=== PATIENT | female | born 1995 | race Caucasian/White ===

== ENCOUNTER 2017-07-07 13:07 | Emergency (ER) | payer SELFPAY ==
[2017-07-07 13:24] VITALS: BP 124/60
[2017-07-07] MEDS ORDERED: Diphtheria,Pertussis(Acell),Tetanus Vaccine 0.5 ML Syringe IM ONE (13:29)
[2017-07-07] MEDS ORDERED: Bacitracin Oint 1 GM U/D Packet TOP ONE (13:29)
--- NOTE | 2017-07-07 13:34 | EDM.PDOC ---
ED HPI GENERAL MEDICAL PROBLEM - General Chief Complaint: Laceration Stated Complaint: LEFT MIDDLE FINGER CUT FROM KNIFE WHILE COOKING Time Seen by Provider: 07/07/17 13:29 Source of Information: Reports: Patient History Limitations: Reports: No Limitations - History of Present Illness INITIAL COMMENTS - FREE TEXT/NARRATIVE: HISTORY AND PHYSICAL: []21-year-old female presents as a laceration from 8:00 last night History of Present Illness: []Patient was cutting up chicken for dinner sliced her finger and could not get into the emergency room until now Review of Systems: As per history of present illness and below otherwise all systems reviewed and negative. Past medical history: As per history of present illness and as reviewed below otherwise noncontributory. Surgical history: As per history of present illness and as reviewed below otherwise noncontributory. Social history: No reported history of drug or alcohol abuse. Family history: As per history of present illness and as reviewed below otherwise noncontributory. Physical exam: Alert and oriented female who answers questions appropriately, is not short of breath with speaking and she is nontoxic in appearance. Skin is warm and dry. HEENT: Atraumatic, normocehpalic, pupils reactive, negative for conjunctival pallor or scleral icterus, mucous membranes moist, throat clear, neck supple, nontender, trachea midline. Lungs: Clear to auscultation, breath sounds equal bilaterally, chest non tender. Heart: S1S2, regular, negative for clicks, rubs, or JVD. Abdomen: Soft, nondistended, nontender. Negative for masses or hepatossplenmegaly. Negative for costovertebral tenderness. Pelvis: Stable nontender. Genitourinary: Deferred. Rectal: Deferred Extremities:Fourth finger left hand has 1 1/2 cm laceration, this is fairly well closed and looks clean . No erythema extending from the wound .negative for cords or calf pain. Neurovascular unremarkable. Neuro: Awake, alert, oriented. Cranial nerves II through XII unremarkable. Cerebellum unremarkable. Motor and sensory unremarkable throughout. Exam nonfocal. Diagnostics: [] Therapeutics: []Bacitracin/bandage Impression: []Laceration Plan: []Discharge to home Have explained the length of time frame from the laceration to when she presented to the emergency room and cannot suture this closed Keep this clean Follow-up with your primary care as needed if any signs of infection, red heat or swelling occurs present for reevaluation Definitive disposition and diagnosis as appropriate pending reevaluation and review of above. - Related Data Allergies Allergy/AdvReac Type Severity Reaction Status Date / Time No Known Allergies Allergy Verified 07/07/17 13:21 Home Meds: Home Meds . 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) Other OB/BYN History: Musculoskeletal History: Reports: None Neurological History: Reports: None Psychiatric History: Reports: None Endocrine/Metabolic History: Reports: None Hematologic History: Reports: None Immunologic History: Reports: None Oncologic (Cancer) History: Reports: None Dermatologic History: Reports: None - Past Surgical History Head Surgeries/Procedures: Reports: None HEENT Surgical History: Reports: Tonsillectomy Cardiovascular Surgical History: Reports: None GI Surgical History: Reports: None Female Surgical History: Reports: None Musculoskeletal Surgical History: Reports: None Social & Family History - Family History Family Medical History: Noncontributory - Tobacco Use Smoking Status *Q: Current Every Day Smoker Years of Tobacco use: 10 Packs/Tins Daily: 0.5 - Caffeine Use Caffeine Use: Reports: None - Recreational Drug Use Recreational Drug Use: No ED ROS GENERAL - Review of Systems Review Of Systems: ROS reveals no pertinent complaints other than HPI. ED EXAM, SKIN/RASH Exam: See Below (See dictation) ED SKIN PROCEDURES - Laceration/Wound Repair Left Posterior Finger Lac/Wound length In cm: 1.5 Appearance: Subcutaneous Distal NVT: Neuro & Vascular Intact, No Tendon Injury Closed with: Other (none) Course - Vital Signs Last Recorded V/S: Last Vital Signs Temp 36.7 C 07/07/17 13:21 Pulse 77 07/07/17 13:21 Resp 16 07/07/17 13:21 BP 124/60 07/07/17 13:21 Pulse Ox 99 07/07/17 13:21 - Orders/Labs/Meds Orders: Active Orders 24 hr Category Date Time Status Vaccines to be Administered [RC] PER UNIT ROUTINE Care 07/07/17 13:29 Ordered Bacitracin [Bacitracin Oint 1 GM] Med 07/07/17 13:29 Once 1 dose TOP ONETIME ONE Diphth,Pertuss(Acell),Tet Vac [Adacel] Med 07/07/17 13:29 Once 0.5 ml IM .ONCE ONE Departure - Departure Time of Disposition: 13:33 Disposition: Home, Self-Care 01 Condition: Good Clinical Impression: Laceration - Discharge Information Instructions: Laceration Care, Adult, [id number] Referrals: PCP,None [Primary Care Provider] - Additional Instructions: The following information is given to patients seen in the emergency department who are being discharged to home. This information is to outline your options for follow-up care. We provide all patients seen in our emergency department with a follow-up referral. The need for follow-up, as well as the timing and circumstances, are variable depending upon the specifics of your emergency department visit. If you don't have a primary care physician on staff, we will provide you with a referral. We always advise you to contact your personal physician following an emergency department visit to inform them of the circumstance of the visit and for follow-up with them and/or the need for any referrals to a consulting specialist. The emergency department will also refer you to a specialist when appropriate. This referral assures that you have the opportunity for followup care with a specialist. All of these measure are taken in an effort to provide you with optimal care, which includes your followup. Under all circumstances we always encourage you to contact your private physician who remains a resource for coordinating your care. When calling for followup care, please make the office aware that this follow-up is from your recent emergency room visit. If for any reason you are refused follow-up, please contact the [facility] emergency department at and asked to speak to the emergency department charge nurse. She will be discharged home. You were given a tetanus vaccine while here A signs of infection, redness, swelling, return for reevaluation - My Orders Last 24 Hours: My Active Orders 07/07/17 13:29 Vaccines to be Administered [RC] PER UNIT ROUTINE Bacitracin [Bacitracin Oint 1 GM] 1 dose TOP ONETIME ONE Diphth,Pertuss(Acell),Tet Vac [Adacel] 0.5 ml IM .ONCE ONE - Assessment/Plan Last 24 Hours: My Active Orders 07/07/17 13:29 Vaccines to be Administered [RC] PER UNIT ROUTINE Bacitracin [Bacitracin Oint 1 GM] 1 dose TOP ONETIME ONE Diphth,Pertuss(Acell),Tet Vac [Adacel] 0.5 ml IM .ONCE ONE
== END 2017-07-07 13:54 | disposition home or self-care (01) ==
LOC: MW.ED 13:07
DX: S61.215A Laceration without foreign body of left ring finger without damage to nail, initial encounter (principal); F17.210 Nicotine dependence, cigarettes, uncomplicated; W26.8XXA Contact with other sharp object(s), not elsewhere classified, initial encounter; Z23 Encounter for immunization
CPT/HCPCS: 12001; 90471; 90715; 99282-25; 99283

== ENCOUNTER 2017-09-30 15:24 | Emergency (ER) | payer SELFPAY ==
--- NOTE | 2017-09-30 16:13 | EDM.PDOC ---
ED HPI GENERAL MEDICAL PROBLEM - General Chief Complaint: Respiratory Problem Stated Complaint: /SINUS INFECTION Time Seen by Provider: 09/30/17 15:55 - History of Present Illness INITIAL COMMENTS - FREE TEXT/NARRATIVE: HISTORY AND PHYSICAL: History of present illness: Patient is a 22-year-old female who presents with uky-[id number]-old child ,both of whom have cough nasal congestion and drainage and this patient feels like she has nasal pressure but not sinus pressure. The patient has not had any vomiting or diarrhea and has no abdominal pain and tells me that her last regular period was July 31 and she's concerned she is . Patient did a home test which was positive. She's had no vaginal bleeding no pelvic pain and no other complaints. She has not started any care and has no local provider. This patient did get her influenza shot this year. She has no sore throat ear pain or neck pain and no frontal headache or any headache at all. She has not tried any rqsa-qvh-rkyafrs medications and says she has not had much nasal drainage and just feels like things are plugged up in her nose but not in her sinuses per say. Patient has been eating and drinking normally and has not had any fevers. Review of systems: As per history of present illness and below otherwise all systems reviewed and negative. Past medical history: As per history of present illness and as reviewed below otherwise noncontributory. Surgical history: As per history of present illness and as reviewed below otherwise noncontributory. Social history: No reported history of drug or alcohol abuse. Family history: As per history of present illness and as reviewed below otherwise noncontributory. Physical exam: Gen.: Well-developed well-nourished female who has minimal nasal quality to voice and is not breathless. Vital signs of been reviewed by me. HEENT: Atraumatic, normocephalic, no discrete sinus tenderness on palpation pupils reactive, negative for conjunctival pallor or scleral icterus, mucous membranes moist, throat clear, neck supple, nontender, trachea midline. No cervical adenopathy or nuchal rigidity. Nasal turbinates have minimal bogginess bilaterally there is some clear nasal drainage Lungs: Clear to auscultation, breath sounds equal bilaterally, chest nontender. Heart: S1S2, regular, rate and rhythm no overt murmurs Abdomen: Soft, nondistended, nontender. NABS Pelvis: Deferred Genitourinary: Deferred. Rectal: Deferred. Extremities: Atraumatic, negative for cords or calf pain. Neurovascular unremarkable. Neuro: Awake, alert, oriented. Cranial nerves II through XII unremarkable. Cerebellum unremarkable. Motor and sensory unremarkable throughout. Exam nonfocal. Diagnostics: UCG influenza Therapeutics: [] Impression: Viral URI, newly diagnosed stable Definitive disposition and diagnosis as appropriate pending reevaluation and review of above. - Related Data Allergies Allergy/AdvReac Type Severity Reaction Status Date / Time No Known Allergies Allergy Verified 09/30/17 16:00 Home Meds: Home Meds . 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) Other OB/BYN History: Musculoskeletal History: Reports: None Neurological History: Reports: None Psychiatric History: Reports: None Endocrine/Metabolic History: Reports: None Hematologic History: Reports: None Immunologic History: Reports: None Oncologic (Cancer) History: Reports: None Dermatologic History: Reports: None - Past Surgical History Head Surgeries/Procedures: Reports: None HEENT Surgical History: Reports: Tonsillectomy Cardiovascular Surgical History: Reports: None GI Surgical History: Reports: None Female Surgical History: Reports: None Musculoskeletal Surgical History: Reports: None Social & Family History - Family History Family Medical History: Noncontributory - Tobacco Use Smoking Status *Q: Current Every Day Smoker Years of Tobacco use: 11 Packs/Tins Daily: 1 - Caffeine Use Caffeine Use: Reports: Coffee - Recreational Drug Use Recreational Drug Use: No ED ROS GENERAL - Review of Systems Review Of Systems: ROS reveals no pertinent complaints other than HPI. ED EXAM, GENERAL - Physical Exam Exam: See Below (See dictation) Course - Vital Signs Last Recorded V/S: Last Vital Signs Temp 36.2 C 09/30/17 15:54 Pulse 96 09/30/17 15:54 Resp 20 09/30/17 15:54 BP 115/61 09/30/17 15:54 Pulse Ox 98 09/30/17 15:54 - Orders/Labs/Meds Labs: Laboratory Tests 09/30/17 Range/Units 16:05 Urine HCG, Qual POSITIVE (NEGATIVE) Departure - Departure Time of Disposition: 16:49 Disposition: Home, Self-Care 01 Condition: Good Clinical Impression: Viral URI Qualifiers: Weeks of gestation: 8 weeks Qualified Code(s): Z3A.08 - 8 weeks gestation of - Discharge Information Referrals: PCP,None [Primary Care Provider] - Forms: ED Department Discharge Additional Instructions: The following information is given to patients seen in the emergency department who are being discharged to home. This information is to outline your options for follow-up care. We provide all patients seen in our emergency department with a follow-up referral. The need for follow-up, as well as the timing and circumstances, are variable depending upon the specifics of your emergency department visit. If you don't have a primary care physician on staff, we will provide you with a referral. We always advise you to contact your personal physician following an emergency department visit to inform them of the circumstance of the visit and for follow-up with them and/or the need for any referrals to a consulting specialist. The emergency department will also refer you to a specialist when appropriate. This referral assures that you have the opportunity for followup care with a specialist. All of these measure are taken in an effort to provide you with optimal care, which includes your followup. Under all circumstances we always encourage you to contact your private physician who remains a resource for coordinating your care. When calling for followup care, please make the office aware that this follow-up is from your recent emergency room visit. If for any reason you are refused follow-up, please contact the [facility] emergency department at and ask to speak to the emergency department charge nurse. [facility] Primary care- Internal Medicine and Family Prctice [address] [place] [id number] [facility] Primary care-Women's Health [address] [place] [id number] Push hydration and use mikd-ilf-xasjiwz Tylenol or Motrin for pain or fevers. Rest and please connect with one of our clinic providers for further care and evaluation of today symptoms. Return to ER as needed and as discussed. Use cool mist humidifier at sleep time. You can use yckb-dxz-hybofmw Benadryl for congestion but it may cause drowsiness so please take care to taking this and you can also use xihi-xrj-cyvpfhu nasal spray. You can take emzg-mia-zngryow Claritin but not Claritin-D or Malena.
[2017-09-30 18:38] VITALS: BP 118/62
== END 2017-09-30 17:25 | disposition home or self-care (01) ==
LOC: MW.ED 15:24
DX: O99.511 Diseases of the respiratory system complicating pregnancy, first trimester (principal); J06.9 Acute upper respiratory infection, unspecified; O99.331 Smoking (tobacco) complicating pregnancy, first trimester; F17.210 Nicotine dependence, cigarettes, uncomplicated; Z3A.08 8 weeks gestation of pregnancy
CPT/HCPCS: 81025; 87804; 99282; 99283

== ENCOUNTER 2018-05-29 05:21 | Inpatient (IN) | payer MEDICAID, OTHER ==
[~2018-05-29 05:21] MED LIST: Citric Acid/Sodium Citrate Solution 30 ML Cup PO ONE; Oxytocin/0.9 % Sodium Chloride 30 UNIT/500 ML BAG IV SCH; Sodium Chloride 0.9% 10 ML Syringe FLUSH PRN; Sodium Chloride 0.9% 2.5 ML Syringe FLUSH PRN; ceFAZolin 2 GM in Premix Bag 1 BAG IV ONE
[2018-05-29] MEDS: Lactated Ringers 1,000 ML IV SCH ×5 (06:00→18:29)
[2018-05-29] MEDS ORDERED: Phenylephrine 1% 10 MG/ML SDV ONE (06:54)
[2018-05-29] MEDS ORDERED: Ondansetron 4 MG/2 ML SDV ONE (06:54)
[2018-05-29] MEDS ORDERED: Morphine PF 1 MG/ML Amp ONE (06:59)
[2018-05-29] MEDS ORDERED: ceFAZolin/Dextrose,Iso-Osmotic 2 GM/50 ML Duplex Bag IV ONE (07:05)
--- NOTE | 2018-05-29 07:38 | PCM.PREANE ---
Preanesthetic Assessment - Procedure Proposed Procedure: (2nd) - Anesthesia/Transfusion/Family Hx Anesthesia History: Prior Anesthesia Without Reaction Family History of Anesthesia Reaction: No Transfusion History: No Prior Transfusion(s) Intubation History: Unknown Additional History: 2015 emergent via epidural - Review of Systems General: No Symptoms Pulmonary: No Symptoms Cardiovascular: No Symptoms Gastrointestinal: Other (GERD) Neurological: Difficulty Walking (due to ) Other: Reports: None - Physical Assessment NPO Status Date: 05/28/18 NPO Status Time: 23:00 Height: 5 ft 2 in Weight: 207 lb 6.4 oz ASA Class: 2 Mental Status: Alert & Oriented x3 Airway Class: Mallampati = 1 Dentition: Reports: Normal Dentition Thyro-Mental Finger Breadths: 3 Mouth Opening Finger Breadths: 3 (tongue appliance) ROM/Head Extension: Full Lungs: Clear to Auscultation, Normal Respiratory Effort Cardiovascular: Regular Rate, Regular Rhythm, No Murmurs - Lab Values: Laboratory Last Values WBC 6.81 K/uL (4.0-11.0) 05/29/18 06:00 RBC 4.34 M/uL (4.30-5.90) 05/29/18 06:00 Hgb 12.6 g/dL (12.0-16.0) 05/29/18 06:00 Hct 36.6 % (36.0-46.0) 05/29/18 06:00 MCV 84.3 fL (80.0-98.0) 05/29/18 06:00 MCH 29.0 pg (27.0-32.0) 05/29/18 06:00 MCHC 34.4 g/dL (31.0-37.0) 05/29/18 06:00 RDW Std Deviation 39.2 fl (28.0-62.0) 05/29/18 06:00 RDW Coeff of Derek 13 % (11.0-15.0) 05/29/18 06:00 Plt Count 151 K/uL (150-400) 05/29/18 06:00 MPV 10.30 fL (7.40-12.00) 05/29/18 06:00 Nucleated RBC % 0.0 /100WBC 05/29/18 06:00 Nucleated RBCs # 0 K/uL 08/30/18 06:00 Blood Type O POSITIVE 05/29/18 06:00 Antibody Screen NEGATIVE 05/29/18 06:00 - Allergies Allergies/Adverse Reactions: Allergies Allergy/AdvReac Type Severity Reaction Status Date / Time No Known Allergies Allergy Verified 05/27/18 15:16 - Blood Blood Available: Yes Product(s) Available: PRBC (T and S) - Anesthesia Plan Pre-Op Medication Ordered: None - Acknowledgements Anesthesia Type Planned: Spinal Pt an Appropriate Candidate for the Planned Anesthesia: Yes Alternatives and Risks of Anesthesia Discussed w Pt/Guardian: Yes Pt/Guardian Understands and Agrees with Anesthesia Plan: Yes PreAnesthesia Questionnaire HEENT History: Reports: Other (See Below) Other HEENT History: wears glasses Cardiovascular History: Reports: None Respiratory History: Reports: None Gastrointestinal History: Reports: Other (See Below) Other Gastrointestinal History: heartburn during Genitourinary History: Reports: Pyelonephritis, UTI, Recurrent PAYMENT ANALYST History: Reports: , Spontaneous Other OB/BYN History: Musculoskeletal History: Reports: None Neurological History: Reports: None Psychiatric History: Reports: Anxiety, Depression Endocrine/Metabolic History: Reports: Obesity/BMI 30+ Hematologic History: Reports: None Immunologic History: Reports: None Oncologic (Cancer) History: Reports: None Dermatologic History: Reports: None - Past Surgical History HEENT Surgical History: Reports: Tonsillectomy GI Surgical History: Reports: None Female Surgical History: Reports: Section Endocrine Surgical History: Reports: None - SUBSTANCE USE Smoking Status *Q: Current Every Day Smoker Tobacco Use Within Last Twelve Months: Cigarettes Recreational Drug Use History: Yes Recreational Drug Type: Reports: Marijuana/Hashish - HOME MEDS Home Medications: Home Meds Calcium Carbonate [Calcium] 1 tab.chew CHEW DAILY 05/27/18 [History] PNV95/Ferrous Fumarate/FA [ Vitamin Tablet] 1 tab PO DAILY 05/27/18 [ History] - CURRENT (IN HOUSE) MEDS Current Meds: Current Medications Lactated Ringer's (Ringers, Lactated) 1,000 mls @ 500 mls/hr IV BOLUS SAUNDRA Last Admin: 05/29/18 07:15 Dose: 999 mls/hr Oxytocin/Sodium Chloride (Oxytocin 30 Unit/500 Ml-Ns) 30 unit in 500 mls @ 250 mls/hr IV TITRATE SAUNDRA Sodium Chloride (Saline Flush) 10 ml FLUSH ASDIRECTED PRN PRN Reason: Keep Vein Open Sodium Chloride (Saline Flush) 2.5 ml FLUSH ASDIRECTED PRN PRN Reason: Keep Vein Open Discontinued Medications Cefazolin Sodium/Dextrose (Ancef) Confirm Administered Dose 2 gm IV .STK-MED ONE Stop: 05/29/18 07:06 Citric Acid/Sodium Citrate (Bicitra Solution) 30 ml PO ONETIME ONE Stop: 05/28/18 09:04 Cefazolin Sodium/Dextrose 2 gm (/ Premix) 50 mls @ 100 mls/hr IV ONETIME ONE Stop: 05/28/18 09:32 Morphine Sulfate (Duramorph Pf) Confirm Administered Dose 1 mg .ROUTE .STK-MED ONE Stop: 05/29/18 07:00 Ondansetron HCl (Zofran) Confirm Administered Dose 4 mg .ROUTE .STK-MED ONE Stop: 05/29/18 06:55 Phenylephrine HCl (Andrew-Synephrine) Confirm Administered Dose 10 mg .ROUTE .STK- MED ONE Stop: 05/29/18 06:55
[2018-05-29] MEDS ORDERED: Citric Acid/Sodium Citrate Solution 30 ML Cup ONE (07:50)
[2018-05-29] MEDS ORDERED: Oxytocin 10 Units/1 ML SDV ONE (08:51)
[2018-05-29] MEDS ORDERED: Octyl 2-Cyanoacrylate 1 Tube ONE (09:09)
--- NOTE | 2018-05-29 09:14 | PCM.LDHP ---
L&D History of Present Illness - General Date of Service: 05/29/18 Admit Problem/Dx: Patient Status Order with Admit Dx/Problem 05/28/18 09:03 Patient Status [ADT] Routine Admission Diagnosis/Problem Admission Diagnosis/Problem Source of Information: Patient History Limitations: Reports: No Limitations - History of Present Illness Improves with: Reports: None Worsens with: Reports: None Associated Symptoms: Reports: N - Related Data Allergies/Adverse Reactions: Allergies Allergy/AdvReac Type Severity Reaction Status Date / Time No Known Allergies Allergy Verified 05/27/18 15:16 Home Medications: Home Meds Calcium Carbonate [Calcium] 1 tab.chew CHEW DAILY 05/27/18 [History] PNV95/Ferrous Fumarate/FA [ Vitamin Tablet] 1 tab PO DAILY 05/27/18 [ History] Past Medical History HEENT History: Reports: Other (See Below) Other HEENT History: wears glasses Cardiovascular History: Reports: None Respiratory History: Reports: None Gastrointestinal History: Reports: Other (See Below) Other Gastrointestinal History: heartburn during Genitourinary History: Reports: Pyelonephritis, UTI, Recurrent [employer] History: Reports: , Spontaneous Other OB/BYN History: Musculoskeletal History: Reports: None Neurological History: Reports: None Psychiatric History: Reports: Anxiety, Depression Endocrine/Metabolic History: Reports: Obesity/BMI 30+ Hematologic History: Reports: None Immunologic History: Reports: None Oncologic (Cancer) History: Reports: None Dermatologic History: Reports: None - Past Surgical History HEENT Surgical History: Reports: Tonsillectomy GI Surgical History: Reports: None Female Surgical History: Reports: Section Endocrine Surgical History: Reports: None Social & Family History - Family History Family Medical History: Noncontributory Cardiac: Reports: Hypertension, DE OBGYN: Reports: Neurological: Reports: CVA Psychiatric: Reports: Anxiety, Depression Oncologic: Reports: Cervix, Lymphoma, Other (See Below) Other Oncologic Family History: testicular - Tobacco Use Smoking Status *Q: Current Every Day Smoker Years of Tobacco use: 12 Packs/Tins Daily: 0.5 - Caffeine Use Caffeine Use: Reports: Coffee - Recreational Drug Use Recreational Drug Use: Yes Drug Use in Last 12 Months: Yes Recreational Drug Type: Reports: Marijuana/Hashish Recreational Drug Use Frequency: Not Used In Over 2 Months H&P Review of Systems - Review of Systems: Review Of Systems: See Below General: Reports: No Symptoms HEENT: Reports: No Symptoms Pulmonary: Reports: No Symptoms Cardiovascular: Reports: No Symptoms Gastrointestinal: Reports: No Symptoms Genitourinary: Reports: No Symptoms Musculoskeletal: Reports: No Symptoms Skin: Reports: No Symptoms Psychiatric: Reports: No Symptoms Neurological: Reports: No Symptoms Hematologic/Lymphatic: Reports: No Symptoms Immunologic: Reports: No Symptoms L&D Exam - Exam Exam: See Below - Vital Signs Weight: 94.075 kg - OB Specific Fundal Height In cm: 37 Contraction Intensity: Mild Movement: Active Heart Tones: Present Presentation: Vertex - Portillo Score Portillo Score Cervix Position: Midposition Portillo Score Consistency: Medium Portillo Score Effacement: 0-30% Portillo Score Dilation: Closed Portillo Score 's Station: -2 Portillo Score Total: 3 - Exam General: Alert, Oriented HEENT: PERRLA, Conjunctiva Clear, EACs Clear, EOMI, Hearing Intact, Mucosa Moist & Dieterich, Nares Patent, Normal Nasal Septum, Posterior Pharynx Clear, TMs Clear Neck: Supple, Trachea Midline Lungs: Clear to Auscultation, Normal Respiratory Effort Cardiovascular: Regular Rate, Regular Rhythm GI/Abdominal Exam: Normal Bowel Sounds, Soft, Non-Tender, No Organomegaly, No Distention, No Abnormal Bruit, No Mass, Pelvis Stable Rectal Exam: Normal Exam, Normal Rectal Tone Genitourinary: Normal external exam, Normal bimanual exam, Normal speculum exam Back Exam: Normal Inspection, Full Range of Motion Extremities: Normal Inspection, Normal Range of Motion, Non-Tender, No Pedal Edema, Normal Capillary Refill Skin: Warm, Dry, Intact Neurological: Cranial Nerves Intact, Reflexes Equal Bilateral Psychiatric: Alert, Normal Affect, Normal Mood - Patient Data Lab Results Last 24 hrs: Laboratory Results - last 24 hr 05/29/18 05/29/18 Range/Units 06:00 06:00 WBC 6.81 (4.0-11.0) K/uL RBC 4.34 (4.30-5.90) M/uL Hgb 12.6 (12.0-16.0) g/dL Hct 36.6 (36.0-46.0) % MCV 84.3 (80.0-98.0) fL MCH 29.0 (27.0-32.0) pg MCHC 34.4 (31.0-37.0) g/dL RDW Std Deviation 39.2 (28.0-62.0) fl RDW Coeff of Derek 13 (11.0-15.0) % Plt Count 151 (150-400) K/uL MPV 10.30 (7.40-12.00) fL Nucleated RBC % 0.0 /100WBC Nucleated RBCs # 0 K/uL Blood Type O POSITIVE Antibody Screen NEGATIVE Result Diagrams: 05/29/18 06:00 Problem List Initiated/Reviewed/Updated: Yes Orders Last 24hrs: Active Orders 24 hr Category Date Time Status Patient Status [ADT] Routine ADT 05/28/18 09:03 Active Non Stress Test [RC] PER UNIT ROUTINE Care 05/28/18 09:03 Active Procedure Site Prep Instruct [RC] ASDIRECTED Care 05/28/18 09:03 Active Up ad Nevaeh [RC] ASDIRECTED Care 05/28/18 09:03 Active Vital Signs [RC] PER UNIT ROUTINE Care 05/28/18 09:03 Active Lactated Ringers [Ringers, Lactated] 1,000 ml Med 05/28/18 09:15 Active IV BOLUS Oxytocin/0.9 % Sodium Chloride [Oxytocin 30 Unit/500 ML Med 05/28/18 09:15 Active -NS] 30 unit in 500 ml IV TITRATE Sodium Chloride 0.9% [Saline Flush] Med 05/28/18 09:03 Active 10 ml FLUSH ASDIRECTED PRN Sodium Chloride 0.9% [Saline Flush] Med 05/28/18 09:03 Active 2.5 ml FLUSH ASDIRECTED PRN Peripheral IV Insertion Adult [OM.PC] Routine Oth 05/28/18 09:03 Ordered Schedule Procedure [COMM] Per Unit Routine Oth 05/28/18 09:03 Ordered Resuscitation Status Routine Resus Stat 05/28/18 09:03 Ordered Medication Orders Lactated Ringer's (Ringers, Lactated) 1,000 mls @ 500 mls/hr IV BOLUS SAUNDRA Last Admin: 05/29/18 08:02 Dose: 999 mls/hr Infusion: 05/29/18 08:02 Dose: 999 mls/hr Admin: 05/29/18 07:15 Dose: 999 mls/hr Infusion: 05/29/18 07:15 Dose: 500 mls/hr Admin: 05/29/18 06:00 Dose: 500 mls/hr Oxytocin/Sodium Chloride (Oxytocin 30 Unit/500 Ml-Ns) 30 unit in 500 mls @ 250 mls/hr IV TITRATE SAUNDRA Sodium Chloride (Saline Flush) 10 ml FLUSH ASDIRECTED PRN PRN Reason: Keep Vein Open Sodium Chloride (Saline Flush) 2.5 ml FLUSH ASDIRECTED PRN PRN Reason: Keep Vein Open Assessment/Plan Comment:: Repeat C/section.
--- NOTE | 2018-05-29 09:16 | PCM.OPNOTE ---
- General Post-Op/Procedure Note Date of Surgery/Procedure: 05/29/18 Operative Procedure(s): Repeat C/section. Pre Op Diagnosis: IUP 39+ wks previous C/section. Post-Op Diagnosis: Same Anesthesia Technique: Spinal Primary Surgeon: Oleksandr Hinds Php Mysql Developer: Margarita Kelley EBL in mLs: 700 Complications: None Condition: Good Free Text/Narrative:: Intake & Output 05/28/18 05/29/18 05/29/18 22:59 06:59 14:59 Intake Total 1999 Balance 2000
[2018-05-29] MEDS ORDERED: Nalbuphine 10 MG/1 ML Vial IVPUSH PRN (09:27)
[2018-05-29] MEDS ORDERED: Naloxone 0.4 MG/ML Syringe IVPUSH PRN (09:27)
[2018-05-29] MEDS ORDERED: diphenhydrAMINE 50 MG/ML SDV IVPUSH PRN (10:03)
[2018-05-29] MEDS ORDERED: Bisacodyl 10 MG Supp RECTAL PRN (10:03)
[2018-05-29] MEDS ORDERED: Lanolin 100% Cream 7 GM Tube TOP PRN (10:03)
[2018-05-29] MEDS ORDERED: Ondansetron 4 MG/2 ML SDV IV PRN (10:03)
[2018-05-29] MEDS ORDERED: Acetaminophen/oxyCODONE 325-5 MG Tab PO PRN (10:03)
[2018-05-29] MEDS: Ketorolac 30 MG/ML SDV IVPUSH SCH ×3 (10:14→22:19)
--- NOTE | 2018-05-29 13:17 | OR ---
SURGEON: Oleksandr Hinds MD DATE OF PROCEDURE: 05/29/2018 PREOPERATIVE DIAGNOSES: Intrauterine at 39+ week, previous section. No care. POSTOPERATIVE DIAGNOSES: Intrauterine at 39+ week, previous section. No care. OPERATION PERFORMED: Repeat low-transverse section. INDIAN NANNY: CAMMY Rodarte. ANESTHESIA: Spinal, Dr. Rosario. ESTIMATED BLOOD LOSS: 700 mL. COMPLICATIONS: None. FINDING: Male fetus, cried immediately. score reported to be 8 and 9. Normal uterus, tubes, and ovary. The weight is not available. INDICATION FOR SURGERY: This patient is 22. She had previous section in [place] and she had no care at all in this . According to the patient and according to her last menstrual cycle, she should be 42+ week. The patient had an ultrasound in our facility, which has put her about 37+ weeks, but she said she is sure of her last menstrual cycle. She had reactive NST and the patient based on her history, which the patient is sure and there is a possibility of postdate is entertained and then a repeat section is performed. PROCEDURE IN DETAIL: The patient was brought to the OR, properly identified and after adequate level of spinal anesthesia, the patient was prepped and draped in sterile fashion as usual. Low transverse Pfannenstiel skin incision done. Abi's fascia and rectus fascia were opened in direction of the incision. The two recti muscles were and peritoneal cavity was entered. Bladder flap was raised in the usual manner pushing the bladder away from the lower uterine segment. Low transverse uterine incision was done and extended manually and fetus was in the vertex position. Amniotic fluid was clear. The fetus was delivered without any problem, cried immediately, and handed to the resuscitating team. score reported to be 8 and 9. The weight is not available. The placenta delivered spontaneous, complete, and intact, and repair of the lower uterine segment was done in two layer with 2-0 Vicryl continuous. Reperitonealization done with 3-0 Vicryl continuous. The peritoneal cavity evacuated completely from all blood clot and closed with 3-0 Vicryl continuous. The rectus fascia was closed with #1 PDS double strand continuous, the Abi's fascia with 3-0 Vicryl continuous, and skin closed with 3-0 Vicryl on a Mo needle in a subcuticular fashion. Instrument and sponge count were correct. The patient tolerated the procedure well and went to recovery room in stable general condition. MISBAH POLLARD /[id number]
[2018-05-29] MEDS: Docusate Sodium 100 MG Cap PO SCH (21:34)
[2018-05-30] MEDS: Ketorolac 30 MG/ML SDV IVPUSH SCH ×2 (05:41→10:46)
--- NOTE | 2018-05-30 09:21 | PCM.PNPP ---
- General Info Date of Service: 05/30/18 Functional Status: Reports: Pain Controlled - Review of Systems General: Reports: No Symptoms HEENT: Reports: No Symptoms Pulmonary: Reports: No Symptoms Cardiovascular: Reports: No Symptoms Gastrointestinal: Reports: No Symptoms Genitourinary: Reports: No Symptoms Musculoskeletal: Reports: No Symptoms Skin: Reports: No Symptoms Neurological: Reports: No Symptoms Psychiatric: Reports: No Symptoms - General Info Date of Service: 05/30/18 - Patient Data Vital Signs - Most Recent: Last Vital Signs Temp 36.4 C 05/30/18 05:00 Pulse 74 05/30/18 08:00 Resp 18 05/30/18 08:00 BP 104/64 05/30/18 05:00 Pulse Ox 100 05/30/18 08:00 Weight - Most Recent: 94.075 kg I&O - Last 24 Hours: Intake & Output 05/29/18 05/30/18 05/30/18 22:59 06:59 14:59 Intake Total 1000 900 Output Total 550 750 Balance 450 150 Lab Results - Last 24 Hours: Laboratory Results - last 24 hr 05/30/18 Range/Units 04:55 Hgb 10.3 L (12.0-16.0) g/dL Hct 30.8 L (36.0-46.0) % Med Orders - Current: Current Medications Bisacodyl (Dulcolax) 10 mg RECTAL ONETIME PRN PRN Reason: Constipation Diphenhydramine HCl (Benadryl) 25 mg IVPUSH Q6H PRN PRN Reason: Itching or Nausea Docusate Sodium (Colace) [address] [facility] Last Admin: 05/29/18 21:34 Dose: 100 mg Emollient Ointment (Lansinoh Hpa) 0 gm TOP ASDIRECTED PRN PRN Reason: Sore Nipples Lactated Ringer's (Ringers, Lactated) 1,000 mls @ 500 mls/hr IV BOLUS [facility] Last Admin: 05/29/18 08:02 Dose: 999 mls/hr Oxytocin/Sodium Chloride (Oxytocin 30 Unit/500 Ml-Ns) 30 unit in 500 mls @ 250 mls/hr IV TITRATE [facility] Lactated Ringer's (Ringers, Lactated) 1,000 mls @ 125 mls/hr IV ASDIRECTED [facility] Last Admin: 05/29/18 18:29 Dose: 125 mls/hr Ibuprofen (Motrin) 800 mg PO Q8H PRN PRN Reason: mild pain or fever Ketorolac Tromethamine (Toradol) 30 mg IVPUSH Q6H SAUNDRA Stop: 05/30/18 10:16 Last Admin: 05/30/18 05:41 Dose: 30 mg Nalbuphine HCl (Nubain) 10 mg IVPUSH Q3H PRN PRN Reason: Pruritis Stop: 05/30/18 09:30 Last Admin: 05/29/18 14:14 Dose: 10 mg Naloxone HCl (Narcan) 0.1 mg IVPUSH ONETIME PRN PRN Reason: Respiratory Depression Stop: 05/30/18 09:28 Ondansetron HCl (Zofran) 4 mg IV Q4H PRN PRN Reason: Nausea/Vomiting Last Admin: 05/29/18 13:09 Dose: 4 mg Oxycodone/Acetaminophen (Percocet 325-5 Mg) 1 tab PO Q4H PRN PRN Reason: Pain (moderate 4-6) Oxycodone/Acetaminophen (Percocet 325-5 Mg) 2 tab PO Q4H PRN PRN Reason: Pain (moderate 4-6) Sodium Chloride (Saline Flush) 10 ml FLUSH ASDIRECTED PRN PRN Reason: Keep Vein Open Sodium Chloride (Saline Flush) 2.5 ml FLUSH ASDIRECTED PRN PRN Reason: Keep Vein Open Discontinued Medications Cefazolin Sodium/Dextrose (Ancef) Confirm Administered Dose 2 gm IV .STK-MED ONE Stop: 05/29/18 07:06 Citric Acid/Sodium Citrate (Bicitra Solution) 30 ml PO ONETIME ONE Stop: 05/28/18 09:04 Last Admin: 05/29/18 07:52 Dose: 30 ml Citric Acid/Sodium Citrate (Bicitra Solution) Confirm Administered Dose 30 ml .ROUTE .STK-MED ONE Stop: 05/29/18 07:51 Cefazolin Sodium/Dextrose 2 gm (/ Premix) 50 mls @ 100 mls/hr IV ONETIME ONE Stop: 05/28/18 09:32 Morphine Sulfate (Duramorph Pf) Confirm Administered Dose 1 mg .ROUTE .STK-MED ONE Stop: 05/29/18 07:00 Octyl Cyanoacrylate (Dermabond Advance) Confirm Administered Dose 1 applic .ROUTE .STK-MED ONE Stop: 05/29/18 09:10 Ondansetron HCl (Zofran) Confirm Administered Dose 4 mg .ROUTE .STK-MED ONE Stop: 05/29/18 06:55 Oxytocin (Pitocin) Confirm Administered Dose 20 unit .ROUTE .STK-MED ONE Stop: 05/29/18 08:52 Phenylephrine HCl (Andrew-Synephrine) Confirm Administered Dose 10 mg .ROUTE .STK- MED ONE Stop: 05/29/18 06:55 - Infant Interaction Support Person: Significant Other - Recovery Exam Fundal Tone: Firm Fundal Level: At Umbilicus Fundal Placement: Midline Lochia Amount: Scant Lochia Color: Rubra/Red Bladder Status: Indwelling Catheter in Place - Exam General: Alert, Oriented HEENT: Pupils Equal Neck: Supple Lungs: Clear to Auscultation, Normal Respiratory Effort Cardiovascular: Regular Rate, Regular Rhythm GI/Abdominal Exam: Normal Bowel Sounds, Soft, Non-Tender, No Organomegaly, No Distention, No Abnormal Bruit, No Mass, Pelvis Stable Extremities: Normal Inspection, Normal Range of Motion, Non-Tender, No Pedal Edema, Normal Capillary Refill Skin: Warm, Dry, Intact Wound/Incisions: Healing Well Neurological: No New Focal Deficit Psy/Mental Status: Alert, Normal Affect, Normal Mood - Problem List Review Problem List Initiated/Reviewed/Updated: Yes - My Orders Last 24 Hours: My Active Orders 05/29/18 10:03 Patient Status [ADT] Routine Ambulate [RC] PER UNIT ROUTINE Communication Order [RC] PER UNIT ROUTINE Communication Order [RC] PER UNIT ROUTINE Communication Order [RC] Per Unit Routine May Shower [RC] ASDIRECTED RT Incentive Spirometry [RC] Q2HWA Vital Signs [RC] PER UNIT ROUTINE Acetaminophen/oxyCODONE [Percocet 325-5 MG] 1 tab PO Q4H PRN Acetaminophen/oxyCODONE [Percocet 325-5 MG] 2 tab PO Q4H PRN Bisacodyl [Dulcolax] 10 mg RECTAL ONETIME PRN Ibuprofen [Motrin] 800 mg PO Q8H PRN Lanolin [Lansinoh HPA] See Dose Instructions TOP ASDIRECTED PRN Ondansetron [Zofran] 4 mg IV Q4H PRN diphenhydrAMINE [Benadryl] 25 mg IVPUSH Q6H PRN Assess Lochia [WOMSER] Per Unit Routine Assess Uterine Involution [WOMSER] Per Unit Routine Breast Pump [WOMSER] Per Unit Routine Peripheral IV Discontinue [OM.PC] Routine Sequential Compression Device [OM.PC] Per Unit Routine 05/29/18 10:15 Ketorolac [Toradol] 30 mg IVPUSH Q6H Lactated Ringers [Ringers, Lactated] 1,000 ml IV ASDIRECTED 05/29/18 21:00 Docusate Sodium [Colace] 100 mg PO BID 05/30/18 Breakfast Regular Diet [DIET] - Assessment Assessment:: Status post section postoperative day #1 patient is doing well incision is clean dry she is voiding without any problem she is on regular diet she's passing gas. Patient will be discharge in a.m. - Plan Plan:: Repeat C/section.
[2018-05-30] MEDS: Docusate Sodium 100 MG Cap PO SCH ×2 (10:47→20:44)
[2018-05-30] MEDS: Ibuprofen 800 MG Tab PO PRN (18:15)
[2018-05-30] MEDS: Acetaminophen/oxyCODONE 325-5 MG Tab PO PRN (20:46)
[2018-05-31] MEDS: Ibuprofen 800 MG Tab PO PRN (04:09)
--- NOTE | 2018-05-31 06:10 | PCM.PNPP ---
- General Info Date of Service: 05/31/18 Admission Dx/Problem (Free Text): 22 yo P2 s/p repeat LTCS , POD 2 Subjective Update: 22 yo P2 s/p repeat , breast feeding , ambulating , normal lochia Functional Status: Reports: Pain Controlled, Tolerating Diet, Ambulating, Urinating - Review of Systems General: Reports: No Symptoms HEENT: Reports: No Symptoms Pulmonary: Reports: No Symptoms Cardiovascular: Reports: No Symptoms Gastrointestinal: Reports: No Symptoms Genitourinary: Reports: No Symptoms Musculoskeletal: Reports: No Symptoms Skin: Reports: No Symptoms Neurological: Reports: No Symptoms Psychiatric: Reports: No Symptoms - General Info Date of Service: 05/31/18 - Patient Data Vital Signs - Most Recent: Last Vital Signs Temp 36.2 C 05/31/18 04:44 Pulse 69 05/31/18 04:44 Resp 18 05/31/18 04:44 BP 108/65 05/31/18 04:44 Pulse Ox 97 05/31/18 04:44 Weight - Most Recent: 94.075 kg I&O - Last 24 Hours: Intake & Output 05/30/18 05/30/18 05/31/18 14:59 22:59 06:59 Output Total 550 Balance -550 Med Orders - Current: Current Medications Bisacodyl (Dulcolax) 10 mg RECTAL ONETIME PRN PRN Reason: Constipation Diphenhydramine HCl (Benadryl) 25 mg IVPUSH Q6H PRN PRN Reason: Itching or Nausea Docusate Sodium (Colace) 100 mg PO BID [facility] Last Admin: 05/30/18 20:44 Dose: 100 mg Emollient Ointment (Lansinoh Hpa) 0 gm TOP ASDIRECTED PRN PRN Reason: Sore Nipples Lactated Ringer's (Ringers, Lactated) 1,000 mls @ 500 mls/hr IV BOLUS [facility] Last Admin: 05/29/18 08:02 Dose: 999 mls/hr Oxytocin/Sodium Chloride (Oxytocin 30 Unit/500 Ml-Ns) 30 unit in 500 mls @ 250 mls/hr IV TITRATE SAUNDRA Lactated Ringer's (Ringers, Lactated) 1,000 mls @ 125 mls/hr IV ASDIRECTED [facility] Last Admin: 05/29/18 18:29 Dose: 125 mls/hr Ibuprofen (Motrin) 800 mg PO Q8H PRN PRN Reason: mild pain or fever Last Admin: 05/31/18 04:09 Dose: 800 mg Ondansetron HCl (Zofran) 4 mg IV Q4H PRN PRN Reason: Nausea/Vomiting Last Admin: 05/29/18 13:09 Dose: 4 mg Oxycodone/Acetaminophen (Percocet 325-5 Mg) 1 tab PO Q4H PRN PRN Reason: Pain (moderate 4-6) Last Admin: 05/30/18 20:46 Dose: 1 tab Oxycodone/Acetaminophen (Percocet 325-5 Mg) 2 tab PO Q4H PRN PRN Reason: Pain (moderate 4-6) Sodium Chloride (Saline Flush) 10 ml FLUSH ASDIRECTED PRN PRN Reason: Keep Vein Open Sodium Chloride (Saline Flush) 2.5 ml FLUSH ASDIRECTED PRN PRN Reason: Keep Vein Open Discontinued Medications Cefazolin Sodium/Dextrose (Ancef) Confirm Administered Dose 2 gm IV .STK-MED ONE Stop: 05/29/18 07:06 Citric Acid/Sodium Citrate (Bicitra Solution) 30 ml PO ONETIME ONE Stop: 05/28/18 09:04 Last Admin: 05/29/18 07:52 Dose: 30 ml Citric Acid/Sodium Citrate (Bicitra Solution) Confirm Administered Dose 30 ml .ROUTE .STK-MED ONE Stop: 05/29/18 07:51 Last Admin: 05/30/18 14:31 Dose: Not Given Cefazolin Sodium/Dextrose 2 gm (/ Premix) 50 mls @ 100 mls/hr IV ONETIME ONE Stop: 05/28/18 09:32 Ketorolac Tromethamine (Toradol) 30 mg IVPUSH Q6H SAUNDRA Stop: 05/30/18 10:16 Last Admin: 05/30/18 10:46 Dose: 30 mg Morphine Sulfate (Duramorph Pf) Confirm Administered Dose 1 mg .ROUTE .STK-MED ONE Stop: 05/29/18 07:00 Nalbuphine HCl (Nubain) 10 mg IVPUSH Q3H PRN PRN Reason: Pruritis Stop: 05/30/18 09:30 Last Admin: 05/29/18 14:14 Dose: 10 mg Naloxone HCl (Narcan) 0.1 mg IVPUSH ONETIME PRN PRN Reason: Respiratory Depression Stop: 05/30/18 09:28 Octyl Cyanoacrylate (Dermabond Advance) Confirm Administered Dose 1 applic .ROUTE .STK-MED ONE Stop: 05/29/18 09:10 Ondansetron HCl (Zofran) Confirm Administered Dose 4 mg .ROUTE .STK-MED ONE Stop: 05/29/18 06:55 Oxytocin (Pitocin) Confirm Administered Dose 20 unit .ROUTE .STK-MED ONE Stop: 05/29/18 08:52 Phenylephrine HCl (Andrew-Synephrine) Confirm Administered Dose 10 mg .ROUTE .STK- MED ONE Stop: 05/29/18 06:55 - Infant Interaction Support Person: Significant Other - Recovery Exam Fundal Tone: Firm Fundal Level: 1 Fingerbreadths Below Umbilicus Fundal Placement: Midline Lochia Amount: Scant Lochia Color: Rubra/Red Perineum Description: Intact, Minimal Bruising/Swelling Episiotomy/Laceration: None Bladder Status: Nonpalpable Urinary Elimination: Voided - Exam General: Alert, Oriented Lungs: Clear to Auscultation Cardiovascular: Regular Rate, Regular Rhythm GI/Abdominal Exam: Normal Bowel Sounds (pfannestiel skin incision c/d/i) Extremities: Normal Inspection Skin: Warm Neurological: No New Focal Deficit Psy/Mental Status: Alert - Problem List & Annotations (1) delivery delivered SNOMED Code(s): 251942518 Code(s): O82 - ENCOUNTER FOR DELIVERY WITHOUT INDICATION Status: Acute Current Visit: Yes - Problem List Review Problem List Initiated/Reviewed/Updated: Yes - Assessment Assessment:: Status post section postoperative day #2 patient is doing well incision is clean dry she is voiding without any problem she is on regular diet she's passing gas. . - Plan Plan:: Discharge home Pain control as needed continue breast feeding .
[2018-05-31 07:20] VITALS: BP 123/63
[2018-05-31] MEDS: Acetaminophen/oxyCODONE 325-5 MG Tab PO PRN (07:40)
[2018-05-31] MEDS: Docusate Sodium 100 MG Cap PO SCH (10:37)
== END 2018-05-31 11:00 | disposition home or self-care (01) | DRG 766 ==
LOC: MW.OB 05:21
PROVIDERS: ADMIT Obstetrics & Gynecology; ATTEND Obstetrics & Gynecology
PROC: 10D00Z1 Extraction of Products of Conception, Low, Open Approach (ICD-10-PCS; principal; 2018-05-29)
DX: O34.211 Maternal care for low transverse scar from previous cesarean delivery (principal); Z3A.39 39 weeks gestation of pregnancy; Z37.0 Single live birth; O09.33 Supervision of pregnancy with insufficient antenatal care, third trimester
CPT/HCPCS: 36415; 59025; 85014; 85018; 85027; 86850; 86900; 86901; A9270-GY; J0690; J1885; J2274; J2300; J2370; J2405; J2590; J7120